=== PATIENT | female | born 1980 ===

== ENCOUNTER 2023-10-02 06:27 | Outpatient (RCR) | payer OTHER, SELFPAY | END 2023-10-02 23:59 | disposition home or self-care (01) | LOC: RPT 06:27 | PROVIDERS: ATTENDING PHYSICIAN Orthopaedic Surgery Orthopaedic Surgery of the Spine; FAMILY PHYSICIAN Nurse Practitioner Family | DX: M25.512 Pain in left shoulder (principal); M75.42 Impingement syndrome of left shoulder; M75.82 Other shoulder lesions, left shoulder; M75.02 Adhesive capsulitis of left shoulder; Z73.6 Limitation of activities due to disability | CPT/HCPCS: 97010; 97110; 97140; 97161 ==

== ENCOUNTER → 2023-10-09 12:56 | Outpatient (REF) | payer OTHER, SELFPAY | LOC: HWEVLT 12:56 | PROVIDERS: ATTENDING PHYSICIAN Radiology Vascular & Interventional Radiology | DX: I83.893 Varicose veins of bilateral lower extremities with other complications (principal) | CPT/HCPCS: 93970 ==

== ENCOUNTER 2023-11-07 10:00 | Outpatient (RCR) | payer OTHER, SELFPAY | END 2023-11-07 23:59 | disposition home or self-care (01) | LOC: RPT 10:00 | PROVIDERS: ATTENDING PHYSICIAN Orthopaedic Surgery Orthopaedic Surgery of the Spine; FAMILY PHYSICIAN Nurse Practitioner Family | DX: M25.512 Pain in left shoulder (principal); M75.42 Impingement syndrome of left shoulder; M75.82 Other shoulder lesions, left shoulder; M75.02 Adhesive capsulitis of left shoulder; Z73.6 Limitation of activities due to disability | CPT/HCPCS: 97010; 97110; 97112; 97140 ==

== ENCOUNTER 2023-11-14 09:55 | Outpatient (RCR) | payer OTHER, SELFPAY | END 2023-11-14 10:52 | disposition home or self-care (01) | LOC: RPT 09:55 | PROVIDERS: ATTENDING PHYSICIAN Orthopaedic Surgery Orthopaedic Surgery of the Spine; FAMILY PHYSICIAN Nurse Practitioner Family | DX: M25.512 Pain in left shoulder (principal); M75.42 Impingement syndrome of left shoulder; M75.82 Other shoulder lesions, left shoulder; M75.02 Adhesive capsulitis of left shoulder; Z73.6 Limitation of activities due to disability | CPT/HCPCS: 97110; 97112 ==